=== PATIENT | male | born 1980 | race Caucasian/White ===

== ENCOUNTER 2022-08-18 11:33 | Outpatient (CLI) | payer OTHER | END 2022-08-18 11:34 | disposition critical access hospital (66) | LOC: EMS 11:33 | DX: S99.912A Unspecified injury of left ankle, initial encounter (principal); W10.9XXA Fall (on) (from) unspecified stairs and steps, initial encounter; Y92.248 Other public administrative building as the place of occurrence of the external cause; Y99.0 Civilian activity done for income or pay | CPT/HCPCS: A0425; A0429 ==

== ENCOUNTER 2022-08-18 11:56 | Emergency (ER) | payer OTHER ==
[2022-08-18] MEDS ORDERED: KETOROLAC 30 MG/ML VIAL IM STA (11:59)
--- NOTE | 2022-08-18 12:03 | ED Physician Documentation ---
History of Present Illness - Stated complaint Stated Complaint: L ANKLE INJ - Additonal information Additional information: 41-year-old male presents emergency department for evaluation of acute left ankle pain. He works as a lead security officer and was walking down some steps at [employer] when he missed the last step causing an inversion injury. He was able to get up and was able to partially bear weight but has significant swelling in the lateral region of the ankle limiting movement. He does have a history of a left ankle sprain in 2019. Subsequently he did develop a DVT in this left leg for which he took 45 days of an anticoagulant. No history of similar since. Currently takes no prescribed medications. Patient did not strike his head or lose consciousness. Denies pain elsewhere in the head, neck, back, shoulders or other joints. Review of Systems Skin: reports: Reviewed and negative Musculoskeletal: reports: Joint pain, Joint swelling PD PAST MEDICAL HISTORY - Present Medications Home Medications: Ambulatory Orders Medication Instructions Recorded Confirmed No Known Home Medications 08/18/22 08/18/22 - Allergies Allergies/Adverse Reactions: Allergies Allergy/AdvReac Type Severity Reaction Status Date / Time No Known Drug Allergies Allergy Verified 08/18/22 12:02 PD ED PE EXPANDED - General General: Alert, No acute distress - Extremities Extremities: Left ankle (Range of motion preserved actively. Tenderness was elicited with palpation of the lateral malleolus. Significant swelling in this region without ecchymosis or obvious deformity otherwise. No pain in the Achilles or medial malleolus. No pain at the base of the foot/fifth metatarsal. 2+ DP pulse. 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 He rolled his left ankle and presented with large amount of lateral malleoli are swelling but no ecchymosis or deformity. He was mildly weightbearing at scene. An x-ray here is interpreted by the radiologist does show mildly displaced distal fibular tip fracture. Patient does have a history of remote injury to this ankle and a subsequent DVT when splinted. As such today we will place him in an Aircast which is removable as well as give him crutches. He is advised to follow-up with local walk-in clinic for referral to orthopedics. At this time I am not able to return him to work given the nature of his job and the need for crutches. I recommended Tylenol and ibuprofen [id number] for discomfort. Patient did decline a prescription of narcotics today in the ER. Usual emergent return precautions discussed. [id number] completed at bedside Departure - Departure Disposition: Home, Self Care Clinical Impression: Fracture of distal end of fibula Qualifiers: Encounter type: initial encounter Fracture type: closed Fracture morphology: other fracture Laterality: left Qualified Code(s): S82.832A - Other fracture of upper and lower end of left fibula, initial encounter for closed fracture Condition: Stable Record reviewed to determine appropriate education?: Yes Instructions: ED Fx Lower Ext Comments: Amrit cantor are seen today in the emergency department after falling down 1 stair at work and injuring your left ankle. The x-ray does show very mildly displaced distal tip fibular fracture. In general these types of fractures are nonoperatively managed though they will take several weeks to heal and you may ultimately require physical therapy or orthopedics in follow-up. You are being discharged with an air splint that you should wear when out of bed. Use the crutches until you are seen by orthopedics. I recommend you follow-up at one of the local walk-in clinics tomorrow to obtain referral to orthopedics. In general I recommend he take 500 mg of Tylenol with food 3 times a day or alternate with 600 mg of ibuprofen, also taken with food 3 times a day for discomfort. Icing the ankle over the next several days for 10 minutes can be helpful
[2022-08-18 12:08] VITALS: BP 141/83
--- NOTE | 2022-08-18 12:33 | XRAY Report ---
PROCEDURE: Ankle 3 View LT INDICATIONS: fall; lateral swelling TECHNIQUE: 3 views of the ankle were acquired. COMPARISON: None. FINDINGS: Bones: There is a minimally displaced fracture at the distal fibular tip.. Ankle mortise is normall y aligned. No suspicious bony lesions. Soft tissues: Prominent lateral malleolar edema. Achilles tendon appears normal. IMPRESSION: Minimally displaced distal fibular tip fracture. Reviewed by: Elvira Chávez MD on 08/18/2022 12:32 PM PDT Approved by: Elvira Chávez MD on 08/18/2022 12:32 PM PDT Station ID: [id number]
== END 2022-08-18 13:30 | disposition home or self-care (01) ==
LOC: ED 11:56
DX: S82.832A Other fracture of upper and lower end of left fibula, initial encounter for closed fracture (principal); X50.1XXA Overexertion from prolonged static or awkward postures, initial encounter; Y99.0 Civilian activity done for income or pay
CPT/HCPCS: 1040M; 73610; 96372; 99283

== ENCOUNTER 2022-08-24 08:00 | Outpatient (CLI) | payer OTHER ==
--- NOTE | 2022-08-25 09:44 | XRAY Report ---
PROCEDURE: Ankle 3 View LT INDICATIONS: LEFT ANKLE FRACTURE TECHNIQUE: 3 views of the ankle were acquired. COMPARISON: X-ray left ankle, 08/18/2022. FINDINGS: Bones: There is a minimally displaced fibular tip fracture, stable in alignment. Ankle mortise is n ormally aligned. No suspicious bony lesions. Mild osteoarthritic changes. Calcaneal spurring. Soft tissues: No tibiotalar joint effusion. Achilles tendon appears normal. Soft tissue swelling o jasmina the lateral malleolus. IMPRESSION: Stable appearance of fibular tip fracture. Reviewed by: Elisa Zepeda MD on 08/25/2022 9:42 AM PDT Approved by: Elisa Zepeda MD on 08/25/2022 9:42 AM PDT Station ID: [id number]
== END 2022-08-24 23:59 | disposition home or self-care (01) ==
LOC: DI.WOS 08:00
PROVIDERS: ATTEND Orthopaedic Surgery Sports Medicine
DX: S82.832D Other fracture of upper and lower end of left fibula, subsequent encounter for closed fracture with routine healing (principal)

== ENCOUNTER 2022-09-28 08:00 | Outpatient (CLI) | payer OTHER ==
--- NOTE | 2022-09-28 18:01 | XRAY Report ---
PROCEDURE: Ankle 3 View LT INDICATIONS: LEFT ANKLE FRACUTURE TECHNIQUE: 3 views of the ankle were acquired. COMPARISON: 08/24/2022 and 08/18/2022. FINDINGS: Bones: Subacute appearing avulsion injury involving tip of lateral malleolus is seen. No new fractur e or dislocation. Ankle mortise is normally aligned. No suspicious bony lesions. Soft tissues: No tibiotalar joint effusion. Achilles tendon appears normal. IMPRESSION: Subacute appearing avulsion injury involving tip of lateral malleolus. No new fracture or dislocation . Ankle mortise is congruent. Reviewed by: Yannick Nielsen MD on 09/28/2022 6:00 PM PDT Approved by: Yannick Nielsen MD on 09/28/2022 6:00 PM PDT Station ID: [id number]
== END 2022-09-28 23:59 | disposition home or self-care (01) ==
LOC: DI.WOS 08:00
PROVIDERS: ATTEND Physician Assistant Surgical
DX: S82.62XD Displaced fracture of lateral malleolus of left fibula, subsequent encounter for closed fracture with routine healing (principal)

== ENCOUNTER 2022-10-26 14:04 | Outpatient (CLI) | payer OTHER ==
--- NOTE | 2022-10-26 15:46 | XRAY Report ---
PROCEDURE: Foot 3 View LT INDICATIONS: LEFT FOOT PAIN TECHNIQUE: 3 views of the foot were acquired. COMPARISON: None. FINDINGS: Bones: No acute fractures or dislocations. No suspicious bony lesions. Small plantar and retrocalca gilbert enthesophytes. Soft tissues: No suspicious soft tissue calcifications or masses. IMPRESSION: No acute osseous abnormality. Reviewed by: No Brooke MD on 10/26/2022 3:44 PM PDT Approved by: No Brooke MD on 10/26/2022 3:44 PM PDT Station ID: [id number]
== END 2022-10-26 23:59 | disposition home or self-care (01) ==
LOC: DI.WOS 14:04
PROVIDERS: ATTEND Physician Assistant Surgical
DX: S82.832A Other fracture of upper and lower end of left fibula, initial encounter for closed fracture (principal)

== ENCOUNTER 2023-08-22 10:25 | Outpatient (CLI) | payer OTHER ==
--- NOTE | 2023-08-23 02:06 | XRAY Report ---
PROCEDURE: Ankle 3+V LT INDICATIONS: EFFUSION, LEFT ANKLE TECHNIQUE: 3 views of the ankle were acquired. COMPARISON: 09/28/2022. FINDINGS: Bones: Ununited lateral malleolar avulsion fracture in noted. Normal bone mineralization. Ankle mort ise is maintained Soft tissues: Unremarkable without significant soft tissue swelling. No radiopaque foreign body. IMPRESSION: Ununited lateral malleolar avulsion fracture Reviewed by: Awais Desir MD on 08/23/2023 1:05 AM KRYSTAL Approved by: Awais Desir MD on 08/23/2023 1:05 AM KRYSTAL Station ID: [id number]
== END 2023-08-22 11:13 | disposition home or self-care (01) ==
LOC: DI.N 10:25
PROVIDERS: ATTEND Physician Assistant Medical
DX: S82.62XA Displaced fracture of lateral malleolus of left fibula, initial encounter for closed fracture (principal)